=== PATIENT | female | born 1945 | race Caucasian/White ===

== ENCOUNTER 2025-05-10 15:30 | Emergency (ER) | payer OTHER, SELFPAY ==
[2025-05-10 15:39] VITALS: BP 111/64
[2025-05-10 16:00] VITALS: BP 133/54
[2025-05-10 16:11] LABS: Hematocrit 37.3 % (37.0-47.0); Hemoglobin 12.3 g/dL (12.0-16.0); Mean Corp Hgb Conc. 33.0 g/dL (33.0-37.0); Mean Corpuscular Volume 91.0 fL (81.0-99.0); Nucleated Red Blood Cells % 0 %; Platelet Count 327 10^3/uL (130-400); Red Cell Dist. Width 13.5 % (11.5-14.5)
--- NOTE | 2025-05-10 16:25 | ED.GENMED ---
History of Present Illness
General
Chief Complaint: Dizziness
Source: patient
Exam Limitations: none
Time Seen by Provider: 05/10/25 15:53
Nursing documentation reviewed up to this point in time: agreed with except (Patient denies dizziness rather, states that her balance, her legs keep buckling)
History of Present Illness
History of Present Illness:
79-year-old female with history of HTN, GERD, IBS, fibromyalgia, anxiety, cholecystectomy presents with family stating 'it's my balance.' States of the past 2 to 3 months she has had increasing feelings like 'my legs are not allowing me to
balance.' She denies dizziness or lightheadedness or headache. She states 'my legs keep buckling.' Today she was in [place] with her family ready to do a walk for Alzheimer's when she started shaking and her legs gave out and she could not
walk.
She states once this past summer while walking a distance from the store to her home by the time she got home, 'I fell onto the step because I had no strength in my legs and I had to crawl into the house.' That was the last time that happened
She typically walks daily around her family's 5 acre property. Her in December, she moved into her daughter and son in law's house. She saw PCP Dr. Agarwal 10 days ago and states 'we talked and I was so emotional we didn't get to the physical
exam' and has another appointment scheduled for next week. Her Sertraline was increased from 100 mg to 150 mg at that visit.
She denies numbness, tingling in extremities.
Past History
Past History
ED Past Medical History: Fibromyalgia, GERD, HTN and Psychiatric (depression, anxiety)
ED Past Surgical History: Cholecystectomy
Social History
Tobacco: Non-smoker
Alcohol: Occasional
Personal:
Living: with family
Review of Systems
Review of Systems
Allergies reviewed?: Yes
All Other Systems: ROS reviewed and negative except as documented in HPI and ROS
Constitutional: Denies fever, fatigue or chills
Respiratory: Denies trouble breathing
Cardiac: Denies chest pain
ABD/GI: Denies abdominal pain, nausea, vomiting, diarrhea, constipated or anorexia
: Denies dysuria, frequency, difficulty voiding or urgency
Musculoskeletal: Reports other (my legs keep buckling); Denies edema
Skin: Reports no symptoms
Neurological: Reports no symptoms
Phy Exam
Physical Exam
Physical Exam:
GENERAL: No acute distress. A&Ox3.
CONSTITUTIONAL: Afebrile.
EYES: clear, conjunctivae normal
ENMT: moist mucus membranes, Pharynx nl
RESPIRATORY: Regular respirations, nonlabored, lungs clear.
CARDIOVASCULAR: Regular rate and rhythm, no murmurs, no rubs.
GI: Soft, nontender, normal BS
MUSCULOSKELETAL: Full ROM of lower extremities with strength 5/5 bilaterally. Moves with ease. Well perfused. No edema
SKIN: Warm, dry, pink
PSYCH: Normal mood and affect. Well kept, interactive and appropriate
NEUROLOGIC: Awake, alert and oriented. No focal neurological deficits. Strength equal throughout. Patient out of bed and ambulated to bathroom and back with normal gait.
Course
Orders/Labs/Results
Orders:
Orders
05/10/25 15:44
EKG [Electrocardiogram (*1)] Urgent
Reason for Study: Tachycardia
EKG- Treatment ONCE
05/10/25 16:04
Complete Blood Count/With Diff Urgent
Comprehensive Metabolic Panel Urgent
05/10/25 16:41
CT Head W/o Iv Contrast Urgent
Comment:
Reason For Exam: 'balance problem' worsening 2 months
05/10/25 16:43
Urinalysis Reflex To Culture Urgent
Date Specimen was Collected: 05/10/25
Time Specimen was Collected: 16:39
Urine Microscopic Reflex Cult Urgent
Urine Culture Urgent
CAREY Source: U
Specimen Description:
Date Specimen was Collected: 05/10/25
Time Specimen was Collected: 16:39
05/10/25 17:41
Cephalexin Monohydrate [Keflex] 500 mg PO NOW STA
Abnormal Lab Results
05/10/25 05/10/25
16:04 16:43
RBC 4.10 L 10^6/uL
(4.20-5.40)
Absolute Monos (auto) 0.7 H 10^3/uL
(0.1-0.6)
Lymphocytes % 16.3 L %
(20.5-51.1)
BUN 24 H mg/dl
(7-17)
Creatinine 1.1 H mg/dL
(0.6-1.0)
Glucose 100 H mg/dl
(70-99)
Ur Occult Blood Reflex 3+ A
(Negative)
Urine Nitrite (Reflex) Positive A
(Negative)
Leukocyte Esterase Rfl 3+ A
(Negative)
Urine RBC 7-10 A /HPF
(0-2)
Urine WBC (Reflex) 90-100 A /HPF
(0-5)
Urine Bacteria (Reflex) Many A
(Negative)
Urine Albumin (Reflex) 2+ A
(Neg - Trace)
05/10/25 16:04
05/10/25 16:04
Vital Signs
Initial and Last Documented VS:
Initial Vital Signs
Temp Pulse Resp BP Pulse Ox
97.9 F 87 16 111/64 95
05/10/25 15:39 05/10/25 15:39 05/10/25 15:39 05/10/25 15:39 05/10/25 15:39
Last Documented Vital Signs
Temp Pulse Resp BP Pulse Ox
97.9 F 70 16 138/65 97
05/10/25 15:39 05/10/25 18:00 05/10/25 16:00 05/10/25 18:00 05/10/25 18:06
MDM/Problems Addressed
Differential Diagnosis Includes:
Dehydration, urinary tract infection, brain tumor, stress reaction due to significant changes with her dying, her moving in with her family
MDM/Problems Addressed:
79-year-old female with history of HTN, GERD, IBS, fibromyalgia, anxiety, cholecystectomy presents with family stating 'it's my balance.' States of the past 2 to 3 months she has had increasing feelings like 'my legs are not allowing me to
balance.' She denies dizziness or lightheadedness or headache. She states 'my legs keep buckling.' Today she was in [place] with her family ready to do a walk for Alzheimer's when she started shaking and her legs gave out and she could not
walk.
She states once this past summer while walking a distance from the store to her home by the time she got home, 'I fell onto the step because I had no strength in my legs and I had to crawl into the house.' That was the last time that happened
She typically walks daily around her family's 5 acre property. Her in December, she moved into her daughter and son in law's house. She saw PCP Dr. Agarwal 10 days ago and states 'we talked and I was so emotional we didn't get to the physical
exam' and has another appointment scheduled for next week. Her Sertraline was increased from 100 mg to 150 mg at that visit.
She denies numbness, tingling in extremities.
EKG NSR
CBC normal
CMP no clinically significant abnormality
5:20 PM:
UA: Consistent with infection, WBCs 90-100, RBC 7-10, +3 leukocytes, positive nitrites, many bacteria
Rx for Keflex sent to her pharmacy
At discharge, patient ambulated with steady gait down entire hallway and out the door with her daughter.
*Pulse Oximetry
SaO2: 98
Oxygen Mode of Delivery: Room air
Patient hypoxic: no
*EKG
EKG Intrepretation Date: 05/10/25
Interpretation: normal
Heart Rate: 76
Rate: normal
Rhythm: sinus
[place]: normal axis
Interval: normal interval
QRS Pattern: normal QRS
Ischemia: no ischemia
*Critical Care Note
Total Time (30-74mins, 75-104mins- exclusive of procedures): Not Applicable
ED Attending Note
-
Portions of this chart may have been created with voice recognition software.� Occasional wrong word or��sound alike� substitutions may have occurred due to the inherent limitations of voice recognition software.
Discharge Plan
Departure
Patient Disposition: Home (Routine Discharge)
Date of Disposition: 05/10/25
Time of Disposition: 17:52
Patient with high blood pressure during this ER visit?: No
Condition: Good
Discharge Problem:
UTI (urinary tract infection)
Instructions: Urinary tract infection (DC)
Prescriptions:
New
cephalexin 500 mg capsule
500 mg PO BID 7 Days Qty: 14 0RF
No Action
multivitamin Tablet
1 tab PO DAILY
lisinopril 20 mg Tablet
20 mg PO DAILY
zinc gluconate 50 mg Tablet
50 mg PO DAILY
sertraline 50 mg Tablet
50 mg PO DAILY
acetaminophen 325 mg Tablet
650 mg PO Q4HPRN PRN (Reason: mild pain) Qty: 60 0RF
oxycodone 5 mg Tablet
2.5 mg PO Q4HPRN PRN (Reason: moderate pain) Qty: 10 0RF
ibuprofen 600 mg tablet
600 mg PO Q6 Qty: 60 0RF
Referrals:
Kelly Agarwal DO [[facility], [facility]] - Keep scheduled appt
PRIVATE,PHYSICIAN [Family Provider, Internal Medicine]
Activity Restrictions/Additional Instructions:
As we discussed, you have a urinary tract infection which may be contributing to your symptoms. I sent a prescription for Keflex to your pharmacy,
Start it tomorrow as you were given a dose here today.
Drink plenty of fluids
Keep your appointment with your doctor next week and take all your results with you.
Interventions
Interventions:
*Risk Screen - Suicide Last Done: 05/10/25 15:39
*General Assessment Last Done: 05/10/25 15:39
*Neglect/Abuse Screening Last Done: 05/10/25 15:39
*ED- Fall Risk Assessment Last Done: 05/10/25 15:39
*ED COVID-19 Vaccine History Last Done: 05/10/25 15:39
*ED Influenza Vaccine History Last Done: 05/10/25 15:39
*Nursing Disposition Last Done: 05/10/25 18:25
ED- Neurological Assessment Last Done: 05/10/25 16:05
ED- Cardiac Assessment Last Done: 05/10/25 18:07
ED Swallowing Screen Last Done: 05/10/25 16:05
Discharge Date and Time
Discharge Date/Time: 05/10/25 18:26
Print Language: ESTONIAN
[2025-05-10 16:34] LABS: ALT (SGPT) 15 U/L (0-35); AST (SGOT) 19 U/L (14-36); Albumin 4.2 g/dl (3.5-5.0); Alkaline Phosphatase 75 U/L (38-126); Blood Urea Nitrogen 24 mg/dl (7-17); Calcium 9.5 mg/dl (8.4-10.2); Carbon Dioxide 26 mmol/L (22-30); Chloride 107 mmol/L (98-107); Glucose 100 mg/dl (70-99); Potassium 4.3 mmol/L (3.5-5.1); Sodium 141 mmol/L (135-145); Total Protein 6.7 g/dl (6.3-8.2); eGFR 50.80
[2025-05-10 16:50] LABS: Urine Character Slightly Cloudy (Clear)
[2025-05-10 17:00] LABS: Urine Squamous Cell 0-2 /LPF (Few)
[2025-05-10 17:01] LABS: Urine White Cell 90-100 /HPF (0-5)
[2025-05-10 18:00] VITALS: BP 138/65
[2025-05-10] MEDS: KEFLEX 500 MG PO (18:01)
== END 2025-05-10 18:26 | disposition home or self-care (01) ==
LOC: EMR 15:30
PROVIDERS: Registered Nurse; EMERGENCY PHYSICIAN Emergency Medicine
DX: N39.0 Urinary tract infection, site not specified (principal); B96.89 Other specified bacterial agents as the cause of diseases classified elsewhere; I10 Essential (primary) hypertension; K21.9 Gastro-esophageal reflux disease without esophagitis; K58.9 Irritable bowel syndrome, unspecified; F41.9 Anxiety disorder, unspecified; F32.A Depression, unspecified; M79.7 Fibromyalgia
CPT/HCPCS: 99284; 70450; 80053; 81003; 81015; 85025; 87077; 87086; 93005

== ENCOUNTER 2025-05-25 11:01 | Emergency (ER) | payer OTHER, SELFPAY ==
[2025-05-25] VITALS (7 sets, daily range): BP systolic 115–170; BP diastolic 53–109; BMI 25.7
--- NOTE | 2025-05-25 12:19 | ED.GENMED ---
History of Present Illness
General
Chief Complaint: Back Pain
Source: patient
Exam Limitations: none
Time Seen by Provider: 05/25/25 12:04
History of Present Illness
History of Present Illness:
79-year-old female presents complaining of intermittent right mid back pain now with right lower abdominal pain with associated nausea and dry heaves. She was here 2 weeks ago and diagnosed with a UTI. She had no urinary symptoms at that time.
She denies chest pain. Prior history of cholecystectomy. No fevers. No leg pain. No other complaints at this
Past History
Past History
ED Past Medical History: Fibromyalgia, GERD, HTN and Psychiatric (depression, anxiety)
ED Past Surgical History: Cholecystectomy
Social History
Tobacco: Non-smoker
Alcohol: Occasional
Personal:
Living: with family
Phy Exam
Physical Exam
Physical Exam:
General: Uncomfortable appearing female no acute respiratory distress
HEENT: Normal cephalic atraumatic
Heart: Regular rate and rhythm
Lungs: Clear no wheeze abdomen is soft tender to the right mid abdomen right costovertebral angle and right lower abdomen no guarding nondistended
Extremities: No cyanosis
Course
Orders/Labs/Results
Orders:
Orders
05/25/25 11:09
EKG [Electrocardiogram (*1)] Urgent
Reason for Study: Fatigue / Weakness
EKG- Treatment ONCE
05/25/25 12:16
0.9% Sodium Chloride 1000 ml [Nss] 1,000 ml IV BOLUS
Ketorolac [Toradol] 15 mg IV NOW STA
Ondansetron Injectable [Zofran] 4 mg IV NOW STA
05/25/25 12:26
Complete Blood Count/With Diff Urgent
Comprehensive Metabolic Panel Urgent
Lipase Urgent
Troponin I Urgent
05/25/25 12:43
CT Abd/pel Without Iv Or Oral Urgent
Comment:
Reason For Exam: right flank pain, vomiting
05/25/25 12:56
HYDROmorphone [Dilaudid] 0.5 mg IV NOW STA
05/25/25 16:18
Urinalysis Reflex To Culture Urgent
Date Specimen was Collected: 05/25/25
Time Specimen was Collected: 16:16
Urine Microscopic Reflex Cult Urgent
Abnormal Lab Results
05/25/25 05/25/25
12:26 16:18
MCHC 31.9 L g/dL
(33.0-37.0)
Absolute Neuts (auto) 7.5 H 10^3/uL
(1.4-6.5)
Absolute Lymphs (auto) 1.1 L 10^3/uL
(1.2-3.4)
Neutrophils % 84.0 H %
(42.2-75.2)
Lymphocytes % 12.6 L %
(20.5-51.1)
BUN 24 H mg/dl
(7-17)
Creatinine 1.2 H mg/dL
(0.6-1.0)
Glucose 166 H mg/dl
(70-99)
Urine Ketones 3+ A
(Negative)
Ur Occult Blood Reflex 1+ A
(Negative)
Urine Bacteria (Reflex) Few A
(Negative)
Urine Albumin (Reflex) 1+ A
(Neg - Trace)
05/25/25 12:26
05/25/25 12:26
Vital Signs
Initial and Last Documented VS:
Initial Vital Signs
Temp Pulse Resp BP Pulse Ox
98.1 F 69 16 159/109 100
05/25/25 11:05 05/25/25 11:05 05/25/25 11:05 05/25/25 11:05 05/25/25 11:05
Last Documented Vital Signs
Temp Pulse Resp BP Pulse Ox
98.1 F 76 17 134/53 96
05/25/25 14:47 05/25/25 15:00 05/25/25 15:00 05/25/25 15:00 05/25/25 15:00
MDM/Problems Addressed
Differential Diagnosis Includes:
Patient here 2 weeks ago diagnosed with UTI now presents with right flank pain and lower abdominal pain with vomiting. Consider renal colic versus pyelonephritis versus UTI or appendicitis.
Toradol and Zofran ordered for symptoms as well as fluids. Check troponin and lipase as well. CT ordered
*Pulse Oximetry
SaO2: 100
Oxygen Mode of Delivery: Room air
Patient hypoxic: no
*Critical Care Note
Total Time (30-74mins, 75-104mins- exclusive of procedures): Not Applicable
Update Note
Update Note:
Patient reevaluated multiple times pain is not completely resolved. CT reviewed and demonstrates mild hydronephrosis and perinephric stranding suggestive of possible recently passed kidney stone versus infection. Urinalysis is negative for
infection. I suspect it was recently passed stone that caused her pain. She is no indication for admission. Stable for discharge
ED Attending Note
-
Portions of this chart may have been created with voice recognition software.� Occasional wrong word or��sound alike� substitutions may have occurred due to the inherent limitations of voice recognition software.
Discharge Plan
Departure
Patient Disposition: Home (Routine Discharge)
Date of Disposition: 05/25/25
Time of Disposition: 17:15
Patient with high blood pressure during this ER visit?: No
Discharge Problem:
passed kidney stone
Instructions: Kidney stones in adults
Prescriptions:
No Action
multivitamin Tablet
1 tab PO DAILY
lisinopril 20 mg Tablet
20 mg PO DAILY
zinc gluconate 50 mg Tablet
50 mg PO DAILY
sertraline 50 mg Tablet
50 mg PO DAILY
acetaminophen 325 mg Tablet
650 mg PO Q4HPRN PRN (Reason: mild pain) Qty: 60 0RF
oxycodone 5 mg Tablet
2.5 mg PO Q4HPRN PRN (Reason: moderate pain) Qty: 10 0RF
ibuprofen 600 mg tablet
600 mg PO Q6 Qty: 60 0RF
cephalexin 500 mg capsule
500 mg PO BID 7 Days Qty: 14 0RF
Referrals:
Mohinder Crawford MD [[facility], Urology]
Kelly Agarwal DO [Family Provider, Internal Medicine]
Activity Restrictions/Additional Instructions:
Drink plenty of fluids. Return here for increasing pain or vomiting. Follow-up with urology otherwise
Interventions
Interventions:
*Risk Screen - Suicide Last Done: 05/25/25 11:05
*General Assessment Last Done: 05/25/25 12:42
*Neglect/Abuse Screening Last Done: 05/25/25 11:05
*ED- Fall Risk Assessment Last Done: 05/25/25 12:42
*ED COVID-19 Vaccine History Last Done: 05/25/25 12:42
*ED Influenza Vaccine History Last Done: 05/25/25 12:42
ED-Musculoskeletal Assessment Last Done: 05/25/25 12:42
Discharge Date and Time
Print Language: [place]
[2025-05-25] MEDS: ZOFRAN 4 MG IV (12:29)
[2025-05-25] MEDS: TORADOL 15 MG IV (12:29)
[2025-05-25] MEDS: NSS 1000 IV (12:31)
[2025-05-25 12:33] LABS: Hematocrit 42.9 % (37.0-47.0); Hemoglobin 13.7 g/dL (12.0-16.0); Mean Corp Hgb Conc. 31.9 g/dL (33.0-37.0); Mean Corpuscular Volume 92.1 fL (81.0-99.0); Nucleated Red Blood Cells % 0 %; Platelet Count 281 10^3/uL (130-400); Red Cell Dist. Width 13.2 % (11.5-14.5)
[2025-05-25 12:47] LABS: ALT (SGPT) 20 U/L (0-35); AST (SGOT) 25 U/L (14-36); Albumin 4.6 g/dl (3.5-5.0); Alkaline Phosphatase 107 U/L (38-126); Blood Urea Nitrogen 24 mg/dl (7-17); Calcium 9.8 mg/dl (8.4-10.2); Carbon Dioxide 22 mmol/L (22-30); Chloride 106 mmol/L (98-107); Estimated Creatinine Clearance 30 ml/min; Glucose 166 mg/dl (70-99); Lipase 91 U/L (23-300); Potassium 3.9 mmol/L (3.5-5.1); Sodium 140 mmol/L (135-145); Total Protein 7.5 g/dl (6.3-8.2); eGFR 45.76
[2025-05-25 12:57] LABS: Troponin I 0.017 ng/ml
[2025-05-25] MEDS: DILAUDID 0.5 MG IV (13:01)
[2025-05-25 16:35] LABS: Urine Character Clear (Clear)
[2025-05-25 16:56] LABS: Urine Red Blood Cell 0-2 /HPF (0-2)
== END 2025-05-25 17:46 | disposition home or self-care (01) ==
LOC: EMR 11:01
PROVIDERS: Physician Assistant; EMERGENCY PHYSICIAN Emergency Medicine; FAMILY PHYSICIAN Internal Medicine
DX: R10.A1 Flank pain, right side (principal); I10 Essential (primary) hypertension; K21.9 Gastro-esophageal reflux disease without esophagitis; M79.7 Fibromyalgia; F41.9 Anxiety disorder, unspecified; F32.A Depression, unspecified
CPT/HCPCS: 99284; 96374; 96375 ×2; 96361; 74176; 80053; 81003; 81015; 83690; 84484; 85025; 93005